=== PATIENT | male | born 1980 | race Caucasian/White ===

== ENCOUNTER 2017-11-26 09:02 | Observation (INO) | payer OTHER ==
--- NOTE | 2017-11-26 09:13 | DR.GENAD ---
HPI - PCP Primary Care Physician: anne-marie - Complaint/Symptoms Chief Complaint Doctors Comments: Patient presented with complain of left chest pain onset on today non radiating, no diaphoresis. He reports having a heart attack in the past according to Dr Cohen (saw Dr Cohen 2007). Patient states that hes used NTG in 2009 for chest pain relief. He denies cigarettes and alcohol use. Chief Complaint:: patient stated for the past 45 minutes he has been having chest pain and pressure. he also stated he has had 2 mild heart attacks in the past. - Source History Provided: Patient - Mode of Arrival Mode of Arrival: Ambulatory - Timing Onset of Chief Complaint: 11/26/17 PMH - PMH Past Medical History: Yes Past Medical History: Hypertension Past Surgical History: No - Family History History of Family Medical Conditions: No - Social History Does patient currently use any type of tobacco product: No Have you used tobacco products in the last 12 months: No Type of Tobacco Use: None Does any household member use tobacco: No Alcohol Use: None Do you use any recreational Drugs:: No Lives With: Family Lives Where: Home - infectious screening In the last 2 months have you had wt loss of >10#?: NO Have you had fever, night sweats or hemotysis?: No Have you traveled outside the country in the last 6 months?: No Isolation: Standard ROS - Review of Systems Constitutional: No Symptoms Reported Eyes: No Symptoms Reported ENTM: No Symptoms Reported Respiratoy: No Symptoms Reported Cardiovascular: No Symptoms Reported Gastrointestinal/Abdominal: No Symptoms Reported Genitourinary: No Symptoms Reported Neurological: No Symptoms Reported Musculoskeletal: No Symptoms Reported Integumentary: No Symptoms Reported Hematologic/Lymphatic: No Symptoms Reported Endocrine: No Symptoms Reported Psychiatric: No Symptoms Reported All Other Systems: Reviewed and Negative PE - Vital Signs Vitals: Temperature 98.7 F Pulse Rate [Left Brachial] 65 Pulse Rate 64 Respiratory Rate 16 Blood Pressure [Left Arm] 129/84 Blood Pressure 150/87 O2 Sat by Pulse Oximetry 99 - General Limitations: No Limitations General Appearance: Alert, In No Apparent Distress - Head Head Exam: Normal Inspection - Eyes Eye exam: Normal Appearance - ENT ENT Exam: Normal Exam External Ear Exam: Normal External Inspection TM/Canal Exam: Bilateral Normal Nose Exam: Normal Nose Exam Mouth Exam: Normal Inspection Throat Exam: Normal Inspection - Neck Neck Exam: Normal Inspection, Full ROM - Chest Chest Inspection: Normal Inspection - Respiratory Respiratory Exam: Normal Lung Sounds Bilat Respiratory Exam: Bilateral Clear to Auscultation - Cardiovascular Cardiovascular Exam: Regular Rate, Normal Rhythm - Abdominal Exam Abdominal Exam: Normal Inspection Abdominal Tenderness: negative: RUQ, RLQ, LUQ, LLQ, Epigastrium, Suprapubic, Diffuse, Mild, Moderate, Severe, Other - Extremities Extremities Exam: Normal Inspection, Full ROM - Back Back Exam: Normal Inspection, Full ROM - Neurologic Neurological Exam: Alert, Oriented X3, CN II-XII Intact - Psychiatric Psychiatric Exam: Normal Affect, Normal Mood - Skin Skin Exam: Warm, Dry Course - Reevaluation 1st: Improved - Consultation Called: 10:00 (Dr Aleman agreed to admnit for further evqaluation) ROR - Labs Reviewed Result Diagrams: 11/26/17 09:00 11/26/17 09:00 Laboratory: WBC 8.5 X10^3/uL (3.6-10.0) 11/26/17 09:00 RBC 4.87 X10^6/uL (4.7-6.0) 11/26/17 09:00 Hgb 15.1 g/dL (13.5-18.0) 11/26/17 09:00 Hct 43.4 % (42.0-54.0) 11/26/17 09:00 MCV 89.2 fL (80.0-100.0) 11/26/17 09:00 MCH 30.9 pg (27.0-34.0) 11/26/17 09:00 MCHC 34.7 g/dL (33.0-35.0) 11/26/17 09:00 RDW 13.4 % (11.6-16.5) 11/26/17 09:00 Plt Count 247 X10^3/uL (150.0-450.0) 11/26/17 09:00 MPV 8.6 fL (7.4-11.0) 11/26/17 09:00 Neut % 46.5 % (42.0-75.0) 11/26/17 09:00 Lymph % 36.0 % (21.0-51.0) 11/26/17 09:00 Sharkey % 12.3 % (0.0-13.0) 11/26/17 09:00 Eos % 4.5 % (0.9-2.9) H 11/26/17 09:00 Baso % 0.7 % (0.2-1.0) 11/26/17 09:00 Neut # 4.0 x10^3/uL (2.2-4.8) 11/26/17 09:00 Lymph # 3.1 X10^3/uL (1.3-2.9) H 11/26/17 09:00 Sharkey # 1.1 x10^3/uL (0.3-0.8) H 11/26/17 09:00 Eos # 0.4 x10^3/uL (0.0-0.2) H 11/26/17 09:00 Baso # 0.1 X10^3/uL (0.0-0.1) 11/26/17 09:00 Absolute Nucleated RBC 0.1 /100WBC 11/26/17 09:00 INR Target Range - 11/26/17 09:00 INR 0.94 (0.8-1.3) 11/26/17 09:00 PTT 27.7 SECONDS (22.9-36.5) 11/26/17 09:00 PTT Comment - 11/26/17 09:00 Sodium 139 mmol/L (136-145) 11/26/17 09:00 Corrected Sodium TNP 11/26/17 09:00 Potassium 4.0 mmol/L (3.5-5.1) 11/26/17 09:00 Chloride 104 mmol/L (98-107) 11/26/17 09:00 Carbon Dioxide 27.7 mmol/L (21-32) 11/26/17 09:00 BUN 14 mg/dL (7-18) 11/26/17 09:00 Creatinine 0.99 mg/dL (0.70-1.30) 11/26/17 09:00 Est GFR (MDRD) Af Amer > 60 (>60) 11/26/17 09:00 Est GFR (MDRD) Non-Af > 60 (>60) 11/26/17 09:00 Glucose 108 mg/dL (65-99) H 11/26/17 09:00 Calcium 9.1 mg/dL (8.5-10.1) 11/26/17 09:00 Corrected Calcium TNP 01/30/18 09:00 Total Bilirubin 0.50 mg/dL (0.2-1.0) 11/26/17 09:00 AST 20 Units/L (15-37) 11/26/17 09:00 ALT 42 Units/L (12-78) 11/26/17 09:00 Alkaline Phosphatase 74 Units/L (46-116) 11/26/17 09:00 Creatine Kinase 126 Units/L (39-308) 11/26/17 09:00 CK-MB (CK-2) < 1.0 ng/mL (0-4.0) 11/26/17 09:00 CK/CKMB % Calc 0.8 % (<4) 11/26/17 09:00 Troponin I < 0.02 ng/mL (0-1.5) 11/26/17 09:00 Total Protein 7.9 g/dL (6.4-8.2) 11/26/17 09:00 Albumin 3.8 g/dL (3.4-5.0) 11/26/17 09:00 Globulin 4.1 g/dL (2.5-4.5) 11/26/17 09:00 Albumin/Globulin Ratio 0.9 Ratio (1.1-2.1) L 11/26/17 09:00 - XRAY XRAY Interpreted by: Radiologist (Chest No acute abnormality) - Diagnosis Discharge Problem: Chest pain Qualifiers: Chest pain type: unspecified Qualified Code(s): R07.9 - Chest pain, unspecified - Discharge Plan Condition: Stable - Follow ups/Referrals Follow ups/Referrals: EUGENE ALEMAN [Primary Care Provider] - 3 days - Instructions
[2017-11-26] MEDS: ASPIRIN PO SCH (09:21)
[2017-11-26 09:23] LABS: BASOPHILS # (AUTO) 0.1 X10^3/uL (0.0-0.1); BASOPHILS % (AUTO) 0.7 % (0.2-1.0); EOSINOPHILS # (AUTO) 0.4 x10^3/uL (0.0-0.2); EOSINOPHILS % (AUTO) 4.5 % (0.9-2.9); HEMATOCRIT 43.4 % (42.0-54.0); HEMOGLOBIN 15.1 g/dL (13.5-18.0); LYMPHOCYTES # (AUTO) 3.1 X10^3/uL (1.3-2.9); MEAN CORPUSCULAR HEMOGLOBIN 30.9 pg (27.0-34.0); MEAN CORPUSCULAR HGB CONC 34.7 g/dL (33.0-35.0); MEAN CORPUSCULAR VOLUME 89.2 fL (80.0-100.0); MEAN PLATELET VOLUME 8.6 fL (7.4-11.0); MONOCYTES # (AUTO) 1.1 x10^3/uL (0.3-0.8); MONOCYTES % (AUTO) 12.3 % (0.0-13.0); NEUTROPHILS % (AUTO) 46.5 % (42.0-75.0); PLATELET COUNT 247 X10^3/uL (150.0-450.0); RED BLOOD COUNT 4.87 X10^6/uL (4.7-6.0); RED CELL DISTRIBUTION WIDTH 13.4 % (11.6-16.5); WHITE BLOOD COUNT 8.5 X10^3/uL (3.6-10.0)
[2017-11-26] MEDS ORDERED: NITROSTAT SL PRN (09:23)
--- NOTE | 2017-11-26 09:27 | RAD ---
HISTORY: Mid sternal chest pain Study: Chest AP portable Comparison: None Findings: The heart is within normal limits in size. The srikanth are normal. The lung naylor are clear. No pleural effusions are identified. The bony thorax is unremarkable. IMPRESSION: No significant abnormality identified Reported By:
[2017-11-26 09:32] LABS: BLOOD UREA NITROGEN 14 mg/dL (7-18); CALCIUM 9.1 mg/dL (8.5-10.1); CARBON DIOXIDE 27.7 mmol/L (21-32); CHLORIDE 104 mmol/L (98-107); CREATININE 0.99 mg/dL (0.70-1.30); SODIUM 139 mmol/L (136-145); TROPONIN I < 0.02 ng/mL (0-1.5); eGFR BLACK RACES > 60 (>60); eGFR NON BLACK RACES > 60 (>60)
[2017-11-26 09:36] LABS: ALANINE AMINOTRANSFERASE 42 Units/L (12-78); ALBUMIN 3.8 g/dL (3.4-5.0); ALKALINE PHOSPHATASE 74 Units/L (46-116); ASPARTATE AMINO TRANSFERASE 20 Units/L (15-37); CKMB % 0.8 % (<4); CREATINE KINASE 126 Units/L (39-308); CREATINE KINASE MB < 1.0 ng/mL (0-4.0); TOTAL PROTEIN 7.9 g/dL (6.4-8.2)
[2017-11-26] MEDS ORDERED: FLEXERIL TAB 10 MG PO PRN (10:31)
[2017-11-26] MEDS: NS 1000 ML 1,000 ML IV SCH ×2 (12:20→18:32)
[2017-11-26 12:42] VITALS: BMI 30.8
[2017-11-26 15:14] LABS: CREATINE KINASE 104 Units/L (39-308); CREATINE KINASE MB < 1.0 ng/mL (0-4.0); TROPONIN I < 0.02 ng/mL (0-1.5)
[2017-11-26] MEDS: ZANTAC PO SCH (20:57)
[2017-11-26 21:14] LABS: CREATINE KINASE 100 Units/L (39-308); CREATINE KINASE MB < 1.0 ng/mL (0-4.0); TROPONIN I < 0.02 ng/mL (0-1.5)
[2017-11-27] MEDS: NS 1000 ML 1,000 ML IV SCH ×2 (02:15→10:01)
[2017-11-27 06:27] LABS: BASOPHILS % (AUTO) 0.7 % (0.2-1.0); EOSINOPHILS # (AUTO) 0.3 x10^3/uL (0.0-0.2); EOSINOPHILS % (AUTO) 4.7 % (0.9-2.9); HEMATOCRIT 39.7 % (42.0-54.0); HEMOGLOBIN 13.5 g/dL (13.5-18.0); LYMPHOCYTES # (AUTO) 2.5 X10^3/uL (1.3-2.9); LYMPHOCYTES % (AUTO) 34.7 % (21.0-51.0); MEAN CORPUSCULAR HEMOGLOBIN 30.7 pg (27.0-34.0); MEAN CORPUSCULAR HGB CONC 34.1 g/dL (33.0-35.0); MONOCYTES # (AUTO) 0.7 x10^3/uL (0.3-0.8); MONOCYTES % (AUTO) 10.2 % (0.0-13.0); NEUTROPHILS # (AUTO) 3.6 x10^3/uL (2.2-4.8); NEUTROPHILS % (AUTO) 49.7 % (42.0-75.0); PLATELET COUNT 211 X10^3/uL (150.0-450.0); RED BLOOD COUNT 4.41 X10^6/uL (4.7-6.0); RED CELL DISTRIBUTION WIDTH 13.2 % (11.6-16.5); WHITE BLOOD COUNT 7.3 X10^3/uL (3.6-10.0)
[2017-11-27 07:06] LABS: CHOL/HDL RATIO 5.2 (0.0-5.0)
[2017-11-27] MEDS ORDERED: ZETIA TAB 10 MG PO SCH (09:00)
[2017-11-27 09:22] LABS: BILIRUBIN,URINE NEGATIVE (NEGATIVE); BLOOD/HEMOGLOBIN,URINE NEGATIVE (NEGATIVE); GLUCOSE, URINE NEGATIVE (NEGATIVE); KETONES,URINE NEGATIVE (NEGATIVE); LEUKOCYTE ESTERASE ,URINE NEGATIVE (NEGATIVE); NITRITES,URINE NEGATIVE (NEGATIVE); PROTEIN,URINE NEGATIVE (NEGATIVE); UROBILINOGEN,URINE NORMAL (NORMAL)
[2017-11-27 09:30] LABS: APPEARANCE,URINE CLEAR (CLEAR); BACTERIA,URINE NEGATIVE /HPF (NEGATIVE); COLOR,URINE YELLOW (YELLOW); RBC,URINE 0 /HPF (NEGATIVE); SQUAMOUS EPITHELIAL CELL,UR NEGATIVE /HPF (NEGATIVE)
[2017-11-27] MEDS ORDERED: PROTONIX INJ 40 MG VIAL IVP ONE (09:30)
[2017-11-27] MEDS ORDERED: LEVSIN/MAALOX/LIDOC VISC PO ONE (09:30)
[2017-11-27] MEDS: ZANTAC PO SCH (09:52)
[2017-11-27] MEDS: ASPIRIN PO SCH (09:52)
[2017-11-27 12:42] VITALS: BP 131/74
== END 2017-11-27 12:35 | disposition home or self-care (01) ==
LOC: ER 09:12 → OBS 10:21
PROVIDERS: ADMIT Internal Medicine; ATTEND Internal Medicine
DX: R07.89 Other chest pain (principal); I25.2 Old myocardial infarction; Z86.79 Personal history of other diseases of the circulatory system; B96.81 Helicobacter pylori [H. pylori] as the cause of diseases classified elsewhere
CPT/HCPCS: 36415; 71045; 80053; 80061; 80307; 81001; 82550; 82553; 84484; 85025; 85610; 85730; 86677; 93005; 93010; 94760; 96365; 99284; A4222; C9113; G0378; G0434

== ENCOUNTER 2018-03-14 20:23 | Emergency (ER) | payer OTHER ==
[2018-03-14 20:39] VITALS: BP 164/89; BMI 31.7
--- NOTE | 2018-03-14 22:19 | DR.GENAD ---
HPI - PCP Primary Care Physician: Ash - Complaint/Symptoms Chief Complaint:: for the past week patient states that he has been hurting in lower abdomen and right side and when he eats something it comes back up, patient also complains of having a cough that has been going on for the past year. He has a pending EGD as well as a f/u with his PCP coming up. Self Treatment fo Chief Complaint: Patient states that he has had this same problem with his abdominal pain and cramping for a year and has been to the doctor numerous times but they have been unable to find anything wrong with him. - Source History Provided: Patient - Mode of Arrival Mode of Arrival: Ambulatory - Timing Onset of Chief Complaint: 03/07/18 PMH - PMH Past Medical History: Yes Past Medical History: Hypertension Past Surgical History: No - Family History History of Family Medical Conditions: Yes Family Medical History: Diabetes Mellitus, Cancer Family Medical History Comment: Mother had CHF - Social History Does patient currently use any type of tobacco product: No Have you used tobacco products in the last 12 months: No Type of Tobacco Use: None Does any household member use tobacco: No Alcohol Use: None Do you use any recreational Drugs:: No Lives With: Family Lives Where: Home - infectious screening In the last 2 months have you had wt loss of >10#?: NO Have you had fever, night sweats or hemotysis?: No Have you traveled outside the country in the last 6 months?: No Isolation: Standard ROS - Review of Systems Constitutional: No Symptoms Reported Eyes: No Symptoms Reported ENTM: No Symptoms Reported Respiratoy: Non-Productive Cough (> 6 months) Cardiovascular: No Symptoms Reported Gastrointestinal/Abdominal: Nausea, Vomiting, Other ("acid/heartburn") Genitourinary: No Symptoms Reported Neurological: No Symptoms Reported Musculoskeletal: No Symptoms Reported Integumentary: No Symptoms Reported Hematologic/Lymphatic: No Symptoms Reported Endocrine: No Symptoms Reported Psychiatric: No Symptoms Reported All Other Systems: Reviewed and Negative PE - Vital Signs Vitals: Temperature 98.7 F Pulse Rate 88 Respiratory Rate 20 Blood Pressure [Right Arm] 117/86 Blood Pressure [Left Arm] 131/74 Blood Pressure 164/89 O2 Sat by Pulse Oximetry 98 - General Limitations: No Limitations General Appearance: Alert, In No Apparent Distress - Head Head Exam: Normal Inspection - Eyes Eye exam: Normal Appearance - ENT ENT Exam: Normal Exam - Neck Neck Exam: Normal Inspection - Chest Chest Inspection: Normal Inspection - Respiratory Respiratory Exam: Normal Lung Sounds Bilat - Cardiovascular Cardiovascular Exam: Regular Rate, Normal Rhythm - Abdominal Exam Abdominal Exam: Normal Inspection, Normal Bowel Sounds, Soft - Extremities Extremities Exam: Normal Inspection - Back Back Exam: Normal Inspection - Neurologic Neurological Exam: Alert, Oriented X3 - Psychiatric Psychiatric Exam: Normal Affect - Skin Skin Exam: Warm ROR - Labs Reviewed Result Diagrams: 03/14/18 22:50 03/14/18 22:50 Laboratory: WBC 10.6 X10^3/uL (3.6-10.0) H 03/14/18 22:50 RBC 4.55 X10^6/uL (4.7-6.0) L 03/14/18 22:50 Hgb 14.0 g/dL (13.5-18.0) 03/14/18 22:50 Hct 40.6 % (42.0-54.0) L 03/14/18 22:50 MCV 89.2 fL (80.0-100.0) 03/14/18 22:50 MCH 30.7 pg (27.0-34.0) 03/14/18 22:50 MCHC 34.5 g/dL (33.0-35.0) 03/14/18 22:50 RDW 12.8 % (11.6-16.5) 03/14/18 22:50 Plt Count 271 X10^3/uL (150.0-450.0) 03/14/18 22:50 MPV 8.2 fL (7.4-11.0) 03/14/18 22:50 Neut % (Auto) 44.6 % (42.0-75.0) 03/14/18 22:50 Lymph % (Auto) 37.3 % (21.0-51.0) 03/14/18 22:50 [place] % (Auto) 13.1 % (0.0-13.0) H 03/14/18 22:50 Eos % (Auto) 4.6 % (0.9-2.9) H 03/14/18 22:50 Baso % (Auto) 0.4 % (0.2-1.0) 03/14/18 22:50 Neut # (Auto) 4.7 x10^3/uL (2.2-4.8) 03/14/18 22:50 Lymph # (Auto) 3.9 X10^3/uL (1.3-2.9) H 03/14/18 22:50 [place] # (Auto) 1.4 x10^3/uL (0.3-0.8) H 03/14/18 22:50 Eos # (Auto) 0.5 x10^3/uL (0.0-0.2) H 03/14/18 22:50 Baso # (Auto) 0.0 X10^3/uL (0.0-0.1) 03/14/18 22:50 Absolute Nucleated RBC 0.0 /100WBC 03/14/18 22:50 Sodium 138 mmol/L (136-145) 03/14/18 22:50 Corrected Sodium TNP 03/14/18 22:50 Potassium 3.3 mmol/L (3.5-5.1) L 03/14/18 22:50 Chloride 104 mmol/L (98-107) 03/14/18 22:50 Carbon Dioxide 28.9 mmol/L (21-32) 03/14/18 22:50 BUN 9 mg/dL (7-18) 03/14/18 22:50 Creatinine 1.04 mg/dL (0.70-1.30) 03/14/18 22:50 Est GFR (MDRD) Af Amer > 60 (>60) 03/14/18 22:50 Est GFR (MDRD) Non-Af > 60 (>60) 03/14/18 22:50 Glucose 109 mg/dL (65-99) H 03/14/18 22:50 Calcium 8.4 mg/dL (8.5-10.1) L 03/14/18 22:50 Corrected Calcium 9.0 mg/dL (8.5-10.1) 03/14/18 22:50 Total Bilirubin 0.40 mg/dL (0.2-1.0) 03/14/18 22:50 AST 14 Units/L (15-37) L 03/14/18 22:50 ALT 37 Units/L (12-78) 03/14/18 22:50 Alkaline Phosphatase 82 Units/L (46-116) 03/14/18 22:50 Total Protein 7.5 g/dL (6.4-8.2) 03/14/18 22:50 Albumin 3.3 g/dL (3.4-5.0) L 03/14/18 22:50 Globulin 4.2 g/dL (2.5-4.5) 03/14/18 22:50 Albumin/Globulin Ratio 0.8 Ratio (1.1-2.1) L 03/14/18 22:50 Amylase 47 Units/L (25-115) 03/14/18 22:50 Lipase 100 Units/L (73-393) 03/14/18 22:50 - XRAY XRAY Interpreted by: Radiologist (CXR: No acute cardiopulmonary disease. KU: No abdominal pathology. ) - Diagnosis Discharge Problem: Abdominal pain, chronic, epigastric, Cough, Hypokalemia Discharge Problem: (Ruled Out): Abdominal pain, acute, epigastric - Discharge Plan Disposition: HOME, SELF-CARE Condition: Stable - Follow ups/Referrals Follow ups/Referrals: EUGENE CONDE [Primary Care Provider] - 3 days - Instructions Instructions: Hypokalemia, Abdominal Pain, Adult, [id number], Cough, Adult, [id number]
[2018-03-14] MEDS ORDERED: PHENERGAN INJ 25 MG IM ONE (22:21)
[2018-03-14] MEDS ORDERED: PHENERGAN INJ 25 MG ONE (22:43)
--- NOTE | 2018-03-14 22:49 | RAD ---
Acute abdominal series Indication:Abdominal pain Comparison: Findings: The trachea is midline. The cardiac silhouette is unremarkable. The lungs are clear without focal i nfiltrate or effusion. The bony thorax is unremarkable. Flat and upright evaluation of the abdomen demonstrates a normal bowel gas pattern. No pathological soft tissue mass or calcification can be observed. The bony structures are grossly intact. IMPRESSION: 1. No acute cardiopulmonary disease. 2. No evidence for acute abdominal pathology identified. Reported By:
[2018-03-14 23:14] LABS: BASOPHILS % (AUTO) 0.4 % (0.2-1.0); EOSINOPHILS # (AUTO) 0.5 x10^3/uL (0.0-0.2); EOSINOPHILS % (AUTO) 4.6 % (0.9-2.9); HEMATOCRIT 40.6 % (42.0-54.0); LYMPHOCYTES # (AUTO) 3.9 X10^3/uL (1.3-2.9); LYMPHOCYTES % (AUTO) 37.3 % (21.0-51.0); MEAN CORPUSCULAR HEMOGLOBIN 30.7 pg (27.0-34.0); MEAN CORPUSCULAR HGB CONC 34.5 g/dL (33.0-35.0); MEAN CORPUSCULAR VOLUME 89.2 fL (80.0-100.0); MEAN PLATELET VOLUME 8.2 fL (7.4-11.0); MONOCYTES # (AUTO) 1.4 x10^3/uL (0.3-0.8); MONOCYTES % (AUTO) 13.1 % (0.0-13.0); NEUTROPHILS # (AUTO) 4.7 x10^3/uL (2.2-4.8); NEUTROPHILS % (AUTO) 44.6 % (42.0-75.0); PLATELET COUNT 271 X10^3/uL (150.0-450.0); RED BLOOD COUNT 4.55 X10^6/uL (4.7-6.0); RED CELL DISTRIBUTION WIDTH 12.8 % (11.6-16.5); WHITE BLOOD COUNT 10.6 X10^3/uL (3.6-10.0)
[2018-03-14 23:20] LABS: ALANINE AMINOTRANSFERASE 37 Units/L (12-78); ALBUMIN 3.3 g/dL (3.4-5.0); ALKALINE PHOSPHATASE 82 Units/L (46-116); AMYLASE 47 Units/L (25-115); ASPARTATE AMINO TRANSFERASE 14 Units/L (15-37); BLOOD UREA NITROGEN 9 mg/dL (7-18); CALCIUM 8.4 mg/dL (8.5-10.1); CARBON DIOXIDE 28.9 mmol/L (21-32); CHLORIDE 104 mmol/L (98-107); CREATININE 1.04 mg/dL (0.70-1.30); LIPASE 100 Units/L (73-393); SODIUM 138 mmol/L (136-145); TOTAL PROTEIN 7.5 g/dL (6.4-8.2); eGFR BLACK RACES > 60 (>60); eGFR NON BLACK RACES > 60 (>60)
[2018-03-15] MEDS ORDERED: K-DUR TAB 20 MEQ PO ONE (23:45)
== END 2018-03-15 00:05 | disposition home or self-care (01) ==
LOC: ER 20:45
DX: R10.84 Generalized abdominal pain (principal); R05 Cough; E87.6 Hypokalemia
CPT/HCPCS: 36415; 74022; 80053; 82150; 83690; 85025; 96372; 99282; 99283; J2550

== ENCOUNTER 2020-08-15 13:54 | Observation (INO) ==
[2020-08-15 13:59] VITALS: BMI 31.7
--- NOTE | 2020-08-15 14:18 | DR.GENAD ---
HPI Time Seen Time Seen by Provider: 08/15/20 14:05 PCP Primary Care Physician: COLLIN DOMINGUEZ Complaint/Symptoms Chief Complaint Doctors Comments: Patient states he is being worked up for hemoptysis by his PCP. Chief Complaint:: PT. C/O CHEST PAIN, HEADACHE, BODY ACHES, CHILLS, SHORTNESS OF BREATH, COUGHING. ONSET OF SATURDAY. Nurses notes reviewed Nurses Notes Review: Yes Source History Provided: Patient Mode of Arrival Mode of Arrival: Ambulatory Timing Onset of Chief Complaint: 08/13/20 Came on: Gradually Duration Duration: Constant How lon Duration: Days Location Location: generalized Severity Severity: Moderate Modifying Factors Worsens:: cough Associated Signs and Symptoms Associated Signs and Symptoms: achy PMH PMH Past Medical History: Yes Past Medical History: Hypertension Past Surgical History: No Surgical History: No History Family History History of Family Medical Conditions: Yes Family Medical History: Diabetes Mellitus and Cancer Social History Does patient currently use any type of tobacco product: No Have you used tobacco products in the last 12 months: No Type of Tobacco Use: None Does any household member use tobacco: No Alcohol Use: Occasionally Do you use any recreational Drugs:: No Lives With: Spouse Lives Where: Home Infectious screening In the last 2 months have you had wt loss of >10#?: NO Have you had fever, night sweats or hemotysis?: No Have you traveled outside the country in the last 6 months?: No Isolation: Droplet ROS Review of Systems Constitutional: Fever and Weakness Eyes: No Symptoms Reported ENTM: No Symptoms Reported Respiratoy: Productive Cough and Hemoptysis Cardiovascular: Chest Pain Gastrointestinal/Abdominal: No Symptoms Reported Genitourinary: No Symptoms Reported Neurological: No Symptoms Reported Musculoskeletal: No Symptoms Reported Integumentary: No Symptoms Reported Hematologic/Lymphatic: No Symptoms Reported Endocrine: No Symptoms Reported Psychiatric: No Symptoms Reported All Other Systems: Reviewed and Negative PE Vital Signs Vitals: Temperature 98.5 F Pulse Rate 104 Respiratory Rate 25 Blood Pressure [Right Arm] 117/86 Blood Pressure [Left Arm] 131/74 Blood Pressure 134/85 O2 Sat by Pulse Oximetry 98 General Limitations: No Limitations General Appearance: Alert and In No Apparent Distress Head Head Exam: Normal Inspection, Atraumatic and Normocephalic Eyes Eye exam: Normal Appearance and EOMI ENT ENT Exam: Normal Exam and Normal Oropharynx External Ear Exam: Normal External Inspection Nose Exam: Normal Nose Exam Mouth Exam: Normal Inspection Throat Exam: Normal Inspection Neck Neck Exam: Normal Inspection, Full ROM and Trachea Midline Chest Chest Inspection: Normal Inspection Respiratory Respiratory Exam: Normal Lung Sounds Bilat Respiratory Exam: Bilateral: Clear to Auscultation Cardiovascular Cardiovascular Exam: Regular Rate Abdominal Exam Abdominal Exam: Normal Inspection, Normal Bowel Sounds and Soft; negative Distention, Tenderness and Guarding Extremities Extremities Exam: Normal Inspection and Full ROM Back Back Exam: Normal Inspection and Full ROM Neurologic Neurological Exam: Alert, Oriented X3 and CN II-XII Intact Psychiatric Psychiatric Exam: Normal Affect Skin Skin Exam: Normal Color ROR Labs Reviewed Result Diagrams: 08/15/20 14:30 08/15/20 14:30 Laboratory: WBC 10.6 X10^3/uL (3.6-10.0) H 08/15/20 14:30 RBC 4.66 X10^6/uL (4.7-6.0) L 08/15/20 14:30 Hgb 14.4 g/dL (13.5-18.0) 08/15/20 14:30 Hct 42.2 % (42.0-54.0) 08/15/20 14:30 MCV 90.5 fL (80.0-100.0) 08/15/20 14:30 MCH 30.8 pg (27.0-34.0) 08/15/20 14:30 MCHC 34.0 g/dL (33.0-35.0) 08/15/20 14:30 RDW 12.8 % (11.6-16.5) 08/15/20 14:30 Plt Count 211 X10^3/uL (150.0-450.0) 08/15/20 14:30 MPV 7.7 fL (7.4-11.0) 08/15/20 14:30 Neut % (Auto) 76.4 % (42.0-75.0) H 08/15/20 14:30 Lymph % (Auto) 11.7 % (21.0-51.0) L 08/15/20 14:30 [place] % (Auto) 8.3 % (0.0-13.0) 08/15/20 14:30 Eos % (Auto) 3.0 % (0.9-2.9) H 08/15/20 14:30 Baso % (Auto) 0.6 % (0.2-1.0) 08/15/20 14:30 Neut # (Auto) 8.1 x10^3/uL (2.2-4.8) H 08/15/20 14:30 Lymph # (Auto) 1.2 X10^3/uL (1.3-2.9) L 08/15/20 14:30 [place] # (Auto) 0.9 x10^3/uL (0.3-0.8) H 08/15/20 14:30 Eos # (Auto) 0.3 x10^3/uL (0.0-0.2) H 08/15/20 14:30 Baso # (Auto) 0.1 X10^3/uL (0.0-0.1) 08/15/20 14:30 Absolute Nucleated RBC 0.0 /100WBC 08/15/20 14:30 Sodium 137 mmol/L (136-145) 08/15/20 14:30 Corrected Sodium TNP 08/15/20 14:30 Potassium 4.0 mmol/L (3.5-5.1) 08/15/20 14:30 Chloride 101 mmol/L (98-107) 08/15/20 14:30 Carbon Dioxide 27.9 mmol/L (21-32) 08/15/20 14:30 BUN 11 mg/dL (7-18) 08/15/20 14:30 Creatinine 1.04 mg/dL (0.70-1.30) 08/15/20 14:30 Est GFR (MDRD) Af Amer > 60 (>60) 08/15/20 14:30 Est GFR (MDRD) Non-Af > 60 (>60) 08/15/20 14:30 Glucose 89 mg/dL (65-99) 08/15/20 14:30 Calcium 8.8 mg/dL (8.5-10.1) 08/15/20 14:30 Corrected Calcium TNP 08/15/20 14:30 Total Bilirubin 0.70 mg/dL (0.2-1.0) 08/15/20 14:30 AST 17 Units/L (15-37) 08/15/20 14:30 ALT 37 Units/L (12-78) 08/15/20 14:30 Alkaline Phosphatase 83 Units/L (46-116) 08/15/20 14:30 Creatine Kinase 151 Units/L (39-308) 08/15/20 14:30 CK-MB (CK-2) < 1.0 ng/mL (0-4.0) 08/15/20 14:30 CK/CKMB % Calc 0.7 % (<4) 08/15/20 14:30 Troponin I < 0.02 ng/mL (0-1.5) 08/15/20 14:30 C-Reactive Protein 19.80 mg/L (0-3.0) H 08/15/20 14:30 Total Protein 8.1 g/dL (6.4-8.2) 08/15/20 14:30 Albumin 3.7 g/dL (3.4-5.0) 08/15/20 14:30 Globulin 4.4 g/dL (2.5-4.5) 08/15/20 14:30 Albumin/Globulin Ratio 0.8 Ratio (1.1-2.1) L 08/15/20 14:30 SARS-CoV-2 (PCR) Negative (NEGATIVE) 08/15/20 15:42 XRAY XRAY Interpreted by: Radiologist X-ray Results: AAS: vague right perihilar infiltrate Opioid Opioid Risk Tool Total: 0 Total Score Risk Category: Low Risk Copyright: Nate PIERCE predicting aberrant behaviors
[2020-08-15 14:33] LABS: BASOPHILS # (AUTO) 0.1 X10^3/uL (0.0-0.1); BASOPHILS % (AUTO) 0.6 % (0.2-1.0); EOSINOPHILS # (AUTO) 0.3 x10^3/uL (0.0-0.2); HEMATOCRIT 42.2 % (42.0-54.0); HEMOGLOBIN 14.4 g/dL (13.5-18.0); LYMPHOCYTES # (AUTO) 1.2 X10^3/uL (1.3-2.9); LYMPHOCYTES % (AUTO) 11.7 % (21.0-51.0); MEAN CORPUSCULAR HEMOGLOBIN 30.8 pg (27.0-34.0); MEAN CORPUSCULAR VOLUME 90.5 fL (80.0-100.0); MEAN PLATELET VOLUME 7.7 fL (7.4-11.0); MONOCYTES # (AUTO) 0.9 x10^3/uL (0.3-0.8); MONOCYTES % (AUTO) 8.3 % (0.0-13.0); NEUTROPHILS # (AUTO) 8.1 x10^3/uL (2.2-4.8); NEUTROPHILS % (AUTO) 76.4 % (42.0-75.0); PLATELET COUNT 211 X10^3/uL (150.0-450.0); RED BLOOD COUNT 4.66 X10^6/uL (4.7-6.0); RED CELL DISTRIBUTION WIDTH 12.8 % (11.6-16.5); WHITE BLOOD COUNT 10.6 X10^3/uL (3.6-10.0)
[2020-08-15 14:52] LABS: BLOOD UREA NITROGEN 11 mg/dL (7-18); CALCIUM 8.8 mg/dL (8.5-10.1); CARBON DIOXIDE 27.9 mmol/L (21-32); CHLORIDE 101 mmol/L (98-107); CREATININE 1.04 mg/dL (0.70-1.30); SODIUM 137 mmol/L (136-145); TROPONIN I < 0.02 ng/mL (0-1.5); eGFR NON BLACK RACES > 60 (>60)
--- NOTE | 2020-08-15 14:53 | RAD ---
HISTORYC/O CHEST PAIN, HEMOPTYSIS, DENIES ABD PAINSTUDYACUTE ABDOMEN SERIESCOMPARISONNoneTECHNIQUEFour view acute abdomen series.FINDINGSThe cardiac and mediastinal contours are within normal limits. There is a vague right perihilar opacity. The lungs are otherwise clear without focal consolidation or segmental collapse. No pleural effusion or pneumothorax.Nonobstructive bowel gas pattern. No definite pneumatosis, free air or portal venous gas. No suspicious abdominal calcifications.IMPRESSIONVague right perihilar opacity could represent pneumonia but a mass is not excluded. Recommend follow-up to document resolution versus CT chest.Electronically signed by: Rafy Singh (Aug 15, 2020 14:51:41)
[2020-08-15 14:57] LABS: ALANINE AMINOTRANSFERASE 37 Units/L (12-78); ALBUMIN 3.7 g/dL (3.4-5.0); ALKALINE PHOSPHATASE 83 Units/L (46-116); ASPARTATE AMINO TRANSFERASE 17 Units/L (15-37); CKMB % 0.7 % (<4); CREATINE KINASE 151 Units/L (39-308); CREATINE KINASE MB < 1.0 ng/mL (0-4.0); TOTAL PROTEIN 8.1 g/dL (6.4-8.2)
--- NOTE | 2020-08-15 16:08 | CT ---
CHEST W/O CONCLINICAL INDICATION: Chest pain and hemoptysisPROCEDURE: Noncontrast CT images were obtained through the chest. Dose reduction techniques including Automated Exposure Control (AEC) and adjustment of mA and kV were utlized.COMPARISON: [None]FINDINGS:The sensitivity for focal lesion detection within the mediastinum is diminished without the use of IV contrast.The heart is normal in size . No pericardial effusion . No suspicious mediastinal or axillary lymph nodes . No focal consolidations, pleural effusions or pneumothorax .Airways are patent . No suspicious pulmonary nodules or masses .Moderate hepatic steatosis..No aggressive osseous lesions.IMPRESSION:1. No source of chest pain arm op this is identified on this examination.2. Moderate hepatic steatosis.Electronically signed by: VANESSA MENDEZ (Aug 15, 2020 16:07:21)
[2020-08-15] MEDS ORDERED: TUSSIONEX PENNKINETIC SUSP PO PRN (17:11)
[2020-08-15] MEDS ORDERED: NS 1/2 1000 ML IV 1,000 ML IV ONE (18:06)
[2020-08-15] MEDS: PROVENTIL NEB TX 0.083% 2.5MG/ 3ML NEB SCH ×2 (18:10→20:33)
[2020-08-15] MEDS: VSL#3 PO SCH (18:27)
[2020-08-15] MEDS: NS 1/2 1000 ML IV 1,000 ML IV SCH (18:28)
[2020-08-15] MEDS: ROCEPHIN 1 GRAM IV PREMIX 1 G/50 ML IV.SOLN. IV SCH (18:29)
[2020-08-15] MEDS: ROBITUSSIN DM PO SCH ×2 (18:29→20:50)
[2020-08-15] MEDS: PULMICORT NEB TX 0.5 MG NEB SCH (20:33)
[2020-08-16] MEDS ORDERED: NS 1/2 1000 ML IV 1,000 ML IV ONE (05:48)
[2020-08-16 06:13] LABS: BASOPHILS % (AUTO) 0.6 % (0.2-1.0); EOSINOPHILS # (AUTO) 0.5 x10^3/uL (0.0-0.2); EOSINOPHILS % (AUTO) 6.8 % (0.9-2.9); HEMATOCRIT 39.4 % (42.0-54.0); HEMOGLOBIN 13.6 g/dL (13.5-18.0); LYMPHOCYTES # (AUTO) 1.6 X10^3/uL (1.3-2.9); LYMPHOCYTES % (AUTO) 21.1 % (21.0-51.0); MEAN CORPUSCULAR HEMOGLOBIN 31.2 pg (27.0-34.0); MEAN CORPUSCULAR HGB CONC 34.4 g/dL (33.0-35.0); MEAN CORPUSCULAR VOLUME 90.8 fL (80.0-100.0); MONOCYTES # (AUTO) 0.9 x10^3/uL (0.3-0.8); MONOCYTES % (AUTO) 11.8 % (0.0-13.0); NEUTROPHILS # (AUTO) 4.4 x10^3/uL (2.2-4.8); NEUTROPHILS % (AUTO) 59.7 % (42.0-75.0); PLATELET COUNT 199 X10^3/uL (150.0-450.0); RED BLOOD COUNT 4.34 X10^6/uL (4.7-6.0); RED CELL DISTRIBUTION WIDTH 13.2 % (11.6-16.5); WHITE BLOOD COUNT 7.5 X10^3/uL (3.6-10.0)
[2020-08-16 06:30] LABS: ALANINE AMINOTRANSFERASE 31 Units/L (12-78); ALBUMIN 3.1 g/dL (3.4-5.0); ALKALINE PHOSPHATASE 75 Units/L (46-116); ASPARTATE AMINO TRANSFERASE 16 Units/L (15-37); BLOOD UREA NITROGEN 8 mg/dL (7-18); CALCIUM 8.7 mg/dL (8.5-10.1); CARBON DIOXIDE 28.2 mmol/L (21-32); CHLORIDE 103 mmol/L (98-107); COR CA(FOR HYPOALB) 9.4 mg/dL (8.5-10.1); COR NA(FOR HYPERGLY) 139 mmol/L (136-145); CREATININE 1.01 mg/dL (0.70-1.30); SODIUM 139 mmol/L (136-145); TOTAL PROTEIN 7.5 g/dL (6.4-8.2); eGFR NON BLACK RACES > 60 (>60)
[2020-08-16] MEDS: NS 1/2 1000 ML IV 1,000 ML IV SCH (07:54)
[2020-08-16] MEDS: ROCEPHIN 1 GRAM IV PREMIX 1 G/50 ML IV.SOLN. IV SCH (08:26)
[2020-08-16] MEDS: ROBITUSSIN DM PO SCH ×3 (08:26→16:53)
[2020-08-16] MEDS: VSL#3 PO SCH (08:27)
[2020-08-16] MEDS: PROVENTIL NEB TX 0.083% 2.5MG/ 3ML NEB SCH ×3 (08:32→17:20)
[2020-08-16] MEDS: PULMICORT NEB TX 0.5 MG NEB SCH (08:32)
[2020-08-16] MEDS ORDERED: PROTONIX INJ 40 MG VIAL IVP SCH (13:00)
[2020-08-16] MEDS: SOLU-Medrol 125 MG VIAL IVP SCH ×2 (13:41→14:36)
[2020-08-16] MEDS ORDERED: NS 500 ML IV 500 ML IV ONE (16:23)
[2020-08-16 16:25] VITALS: BP 106/60
[2020-08-16] MEDS ORDERED: LEVAQUIN TAB 500 MG PO SCH (17:00)
--- NOTE | 2020-08-16 17:04 | CT ---
HISTORYSOB, ELEVATED D-DIMERSTUDYCTA [id number] axial images of the chest were obtained from the thoracic inlet to the upper abdomen after the administration of IV contrast. 3D reconstructions utilizing axi al MIPS imaging was performed and reviewed. Dose reduction techniques including Automated Exposure C ontrol (AEC) and adjustment of mA and kV were utilized.FINDINGSThe thyroid gland is unremarkable. The aorta is mildly opacified and minimally dilated throughout which is unchanged with no filling defect s seen. The pulmonary arteries are well opacified with no filling defect or vessel cutoff. The adrena ls are normal. The visualized upper abdomen is unremarkable. There are small lymph nodes scattered in AP window and pretracheal region measuring up to 8 mm. There are small lymph nodes scattered in the axillar regions bilaterally measuring up to 1.2 cm on the left which are unchanged. The lungs are hyp erinflated and emphysematous with subpleural bullous lesions and scarring along the apices which is u nchanged. No consolidation or effusion is seen. There is no pulmonary nodule or mass. The bones are i ntact.IMPRESSIONNo evidence of a pulmonary embolus.Minimally dilated thoracic aorta with no aneurysm or dissection.Mild chronic obstructive lung changes with no acute pulmonary abnormality.Small lymph n odes scattered in the mediastinum which are not pathologic by size criteria.Small shotty lymph nodes along the axillar regions bilaterally which are unchanged.Electronically signed by: EUGENE PARADA (Oc 2019 17:02:33)
[2020-08-16] MEDS ORDERED: LEVAQUIN TAB 500 MG ONE (17:26)
--- NOTE | 2020-08-16 18:04 | DR.H&P ---
H&P - History & Physical for Day of: H&P Date: 08/15/20 - Chief Complaint Chief Complaint: cough, chest tightness, coughing up blood - History of Present Illness History of Present Illness: PT IS 40 [facility] ER ADMISSION WITH [facility], WHEEING, COUGHING UP MUCOUS WITH BLOOD IN IT AND CHEST TIGHTNESS. PT DENIES ANY KNOWN COVID EXPOSURE, COVID NEGATIVE IN ER. PT STATES IT STARTED ON SATURDAY AFTER WORKING AT A [employer] WITH "ALOT OF DUST" WITH ONSET FOLLOWING DUST EXPOSURE. PT HAD PMH OF HTN. PT HAD SCAN WITH PNEUMONIA. PT ADMITTED FOR TREATMENT OF ACUTE ILLNESS, - Past Medical History Past Medical History: Hypertension - Past Surgical History Surgical History: Other - Family History Family Medical History: Cancer, [place], Heart Failure - Social History Does patient currently use any type of tobacco product: No Have you used tobacco products in the last 12 months: No Type of Tobacco Use: Cigarettes How many years tobacco product used: 14 Does any household member use tobacco: No Alcohol Use: Occasionally Drug Use: None - Medications Home Medications: No Known Drug Allergies Allergy (Verified 08/15/20 13:59) CONTINUE taking the following medications bisoprolol fumarate 5 mg PO DAILY 08/15/20 [History] lisinopril 10 mg PO DAILY 08/15/20 [History] pantoprazole 40 mg PO BID 08/15/20 [History] pravastatin 20 mg PO DAILY 08/15/20 [History] New Prescriptions levofloxacin 500 mg PO Q24H #7 tab 08/16/20 [Rx] prednisone 10 mg PO DAILY #18 tab 08/16/20 [Rx] - Review of Systems Constitutional: Malaise Eyes: No Symptoms Reported ENT: No Symptoms Reported Respiratory: Cough, Hemoptysis, Wheezing Cardiovascular: No Symptoms Reported Gastrointestinal: No Symptoms Reported Genitourinary: No Symptoms Reported Musculoskeletal: No Symptoms Reported Skin: No Symptoms Reported Neurological: No Symptoms Reported - Physical Exam Vital Signs: Temperature 98.5 F Pulse Rate [Left Brachial] 87 Pulse Rate 82 Respiratory Rate 20 Blood Pressure [Right Arm] 117/86 Blood Pressure [Left Arm] 106/60 Blood Pressure 134/85 O2 Sat by Pulse Oximetry 99 Oriented: Normal Eyes: Normal Ear: Normal Nose: Normal Throat: Normal Respiratory: Wheezes Throughout, RLL Diminished, LLL Diminished Cardiovascular: Normal : Normal Auscultation: Bowel Sounds: Normal Palpation: Normal Tenderness: Normal Skin: Normal Musculoskeletal: Normal Psychiatric: Anxiety Affect: Anxious Speech Pattern: Clear, Appropriate - Assessment/Plan (1) Hemoptysis Status: Acute Plan: ADMIT, IV ATBX. RESP THERAPY, CT LUNG ON ADMISSION. BP CONTROL, IV SOLU MEDROL. RT, PRN SUPPLEMENTAL O2 (2) Pneumonia Status: Acute - Allergies Allergies/Adverse Reactions: Allergies Allergy/AdvReac Type Severity Reaction Status Date / Time No Known Drug Allergies Allergy Verified 08/15/20 13:59
== END 2020-08-16 18:20 | disposition home or self-care (01) ==
LOC: MED/SURG 13:57 → ER 13:57 → MED/SURG 17:31
PROVIDERS: ADMIT Internal Medicine; ATTEND Internal Medicine
DX: R04.2 Hemoptysis; I10 Essential (primary) hypertension; J18.8 Other pneumonia, unspecified organism; Z20.828 Contact with and (suspected) exposure to other viral communicable diseases; R50.9 Fever, unspecified; R79.1 Abnormal coagulation profile; R07.89 Other chest pain; R06.02 Shortness of breath